=== PATIENT | male | born 1970 | race Caucasian/White ===

== ENCOUNTER 2016-10-20 21:09 | Emergency (ER) | payer OTHER ==
[~2016-10-20 21:09] MED LIST: ASPI81TA82 PO; BENEPOW5 PO; BUSP5 PO; GLUCOMETER XX; GLUCOMTESTSTRIPS XX; LANTUS2P SC; NOVOLOGP2 SQ; TRAZ50TA4 PO; VENL-39 PO; Z.0.LANCETS XX
[2016-10-20 21:13] VITALS: BP 182/114; PULSE 140; RESP 18; TEMP 98; O2SAT 95
--- NOTE | 2016-10-20 21:49 | PD ---
Physical Exam Time Seen by Provider: 21:46 Narrative 46 y/o male here for evaluation of "nervous breakdown." He is very agitated with any questioning in triage. He does not want to elaborate on his symptoms. Vital signs reviewed. Seen at triage desk. Awaiting bed placement. Data Data Last Documented VS Vital Signs Date Time Temp Pulse Resp B/P Pulse Ox O2 Delivery O2 Flow Rate FiO2 10/20/16 21:13 98.0 140 18 182/114 95 Room Air [facility] Medical Record Reviewed: Yes Supervised Visit with SANYA: Janes Carnes Oct 20, 2016 21:49
[2016-10-20] MEDS ORDERED: LANTUS2P SQ (23:56)
[2016-10-20] MEDS ORDERED: NOVOLOGP2 SQ (23:56)
[2016-10-20] MEDS ORDERED: ASPI81CH CHEW (23:56)
[2016-10-20] MEDS ORDERED: VENL75CA44 PO (23:56)
[2016-10-21 00:21] LABS: AUTOMATED NEUTROPHIL # 6.9 TH/MM3 (1.8-7.7); BASOPHIL # 0.1 TH/MM3 (0-0.2); BASOPHIL % 0.6 % (0.0-2.0); EOSINOPHIL # 0.1 TH/MM3 (0-0.4); EOSINOPHIL % 0.5 % (0.0-4.0); HEMATOCRIT 46.9 % (39.0-51.0); HEMO FLAGS DIFF FINAL; LYMPH % 38.2 % (9.0-44.0); MEAN CELL VOLUME 83.4 FL (80.0-100.0); MEAN CORPUSCULAR HEMOGLOBIN 29.1 PG (27.0-34.0); MEAN CORPUSCULAR HGB CONC 34.9 % (32.0-36.0); MONO % 8.2 % (0.0-8.0); NEUT % 52.5 % (16.0-70.0); PLATELET COUNT 329 TH/MM3 (150-450); RED BLOOD COUNT 5.63 MIL/MM3 (4.50-5.90); RED CELL DISTRIBUTION WIDTH 12.8 % (11.6-17.2); WHITE BLOOD COUNT 13.1 TH/MM3 (4.0-11.0)
[2016-10-21 00:35] LABS: AMPHETAMINE, URINE NEG (NEG); BARBITURATES, URINE NEG (NEG); COCAINE, URINE NEG (NEG)
[2016-10-21 00:43] LABS: ALT (GPT) 37 U/L (12-78)
[2016-10-21 00:45] LABS: ALKALINE PHOSPHATASE 113 U/L (45-117); TOTAL BILIRUBIN ADULT 0.5 MG/DL (0.2-1.0)
[2016-10-21 00:54] LABS: ANION GAP 12 MEQ/L (5-15); AST (GOT) 33 U/L (15-37); BICARBONATE 22.4 MEQ/L (21.0-32.0); BLOOD UREA NITROGEN 22 MG/DL (7-18); CHLORIDE 99 MEQ/L (98-107); GLOMERULAR FILTRATION RATE 72 ML/MIN (>89); SODIUM (NA) 133 MEQ/L (136-145)
--- NOTE | 2016-10-21 00:54 | PD ---
HPI Chief Complaint: Psychiatric Symptoms Time Seen by Provider: 23:53 Travel History International Travel<30 days: No Contact w/Intl Traveler<30days: No Traveled to known affect area: No History of Present Illness HPI 46-year-old male with history of PTSD, here voluntarily for psychiatric evaluation. The patient reports having many issues with his current and is afraid that he may have a nervous breakdown. He tells me that he has not been on his venlafaxine lately. He denies suicidal or homicidal ideation. He denies alcohol or any toxic ingestions. He is unwilling to provide too much detail about his situation, stating he would rather speak to a psychiatrist about it. PFSH Past Medical History Asthma: Yes (MILD) Blood Disorders: No Anxiety: Yes Depression: Yes Heart Rhythm Problems: No Cancer: No High Cholesterol: Yes Chemotherapy: No Chest Pain: Yes Congestive Heart Failure: No COPD: Yes Diabetes: Yes (INSULIN DEP) Patient Takes Glucophage: No Endocrine: Yes Gastrointestinal Disorders: Yes (gi bleeding 1994 all started) Genitourinary: Yes (IBS REFLUX) Immune Disorder: No Musculoskeletal: No Neurologic: Yes Psychiatric: Yes (PTSD) Reproductive: No Respiratory: Yes (should be wearing cpap but does not ) Immunizations Current: Yes Radiation Therapy: No Sleep Apnea: Yes (OCCASIONAL) Thyroid Disease: No Tetanus Vaccination: < 5 Years Influenza Vaccination: No Past Surgical History Tonsillectomy: Yes Other Surgery: Yes (R shoulder, TONSILLECTOMY) Social History Alcohol Use: No Tobacco Use: No Substance Use: No Allergies-Medications (Allergen,Severity, Reaction): Coded Allergies: No Known Allergies (Unverified , 10/20/16) Reported Meds & Prescriptions Reported Meds & Active Scripts Active Reported Venlafaxine ER 24 HR (Venlafaxine HCl) 75 Mg Cap 75 Mg PO DAILY Lantus Inj (Insulin Glargine) 100 Unit/Ml Inj 20 Unit SQ HS Novolog Inj (Insulin Aspart) 1,000 Unit/10 Ml Vial 7 Units SQ TID Aspirin 81 Mg Chew 81 Mg CHEW DAILY Review of Systems Except as stated in HPI: all other systems reviewed are Neg Physical Exam Narrative GENERAL: Well-developed, well-nourished, comfortable, no apparent distress. SKIN: Focused skin assessment warm/dry. HEAD: Atraumatic. Normocephalic. EYES: Pupils equal and round. No scleral icterus. No injection or drainage. ENT: No nasal bleeding or discharge. Mucous membranes pink and moist. NECK: Trachea midline. No JVD. No nuchal rigidity. CARDIOVASCULAR: Regular rate and rhythm. No murmur appreciated. RESPIRATORY: No accessory muscle use. Clear to auscultation. Breath sounds equal bilaterally. GASTROINTESTINAL: Abdomen soft, non-tender, nondistended. MUSCULOSKELETAL: No obvious deformities. No clubbing. No cyanosis. No edema. NEUROLOGICAL: Awake and alert. No obvious cranial nerve deficits. Motor grossly within normal limits. Normal speech. PSYCHIATRIC: Appropriate mood and affect; insight and judgment normal. Data Data Last Documented VS Vital Signs Date Time Temp Pulse Resp B/P Pulse Ox O2 Delivery O2 Flow Rate FiO2 10/21/16 01:01 138 18 147/87 97 Room Air 10/20/16 21:13 98.0 Orders Electrocardiogram (10/20/16 ) Complete Blood Count With Diff (10/20/16 23:53) Comprehensive Metabolic Panel (10/20/16 23:53) Psych Screen (10/20/16 23:53) Drug Screen, Random Urine (10/20/16 23:53) Alcohol (Ethanol) (10/20/16 23:53) Salicylates (Aspirin) (10/20/16 23:53) Tylenol (Acetaminophen) (10/20/16 23:53) Sodium Chlor 0.9% 1000 Ml Inj (Ns 1000 M (10/21/16 01:00) Lorazepam Inj (Ativan Inj) (10/21/16 01:00) Thyroid Stimulating Hormone (10/21/16 01:06) Thyroxine (T4) (10/21/16 01:06) Sodium Chlor 0.9% 1000 Ml Inj (Ns 1000 M (10/21/16 01:30) Labs Laboratory Tests Test 10/21/16 10/21/16 00:00 00:05 White Blood Count 13.1 TH/MM3 Red Blood Count 5.63 MIL/MM3 Hemoglobin 16.4 GM/DL Hematocrit 46.9 % Mean Corpuscular Volume 83.4 FL Mean Corpuscular Hemoglobin 29.1 PG Mean Corpuscular Hemoglobin 34.9 % Concent Red Cell Distribution Width 12.8 % Platelet Count 329 TH/MM3 Mean Platelet Volume 8.6 FL Neutrophils (%) (Auto) 52.5 % Lymphocytes (%) (Auto) 38.2 % Monocytes (%) (Auto) 8.2 % Eosinophils (%) (Auto) 0.5 % Basophils (%) (Auto) 0.6 % Neutrophils # (Auto) 6.9 TH/MM3 Lymphocytes # (Auto) 5.0 TH/MM3 Monocytes # (Auto) 1.1 TH/MM3 Eosinophils # (Auto) 0.1 TH/MM3 Basophils # (Auto) 0.1 TH/MM3 CBC Comment DIFF FINAL Differential Comment Sodium Level 133 MEQ/L Potassium Level 4.6 MEQ/L Chloride Level 99 MEQ/L Carbon Dioxide Level 22.4 MEQ/L Anion Gap 12 MEQ/L Blood Urea Nitrogen 22 MG/DL Creatinine 1.09 MG/DL Estimat Glomerular Filtration 72 ML/MIN Rate Random Glucose 263 MG/DL Calcium Level 9.5 MG/DL Total Bilirubin 0.5 MG/DL Aspartate Amino Transf 33 U/L (AST/SGOT) Alanine Aminotransferase 37 U/L (ALT/SGPT) Alkaline Phosphatase 113 U/L Total Protein 8.1 GM/DL Albumin 4.0 GM/DL Salicylates Level LESS THAN 1.7 MG/DL Acetaminophen Level LESS THAN 2.0 MCG/ML Ethyl Alcohol Level LESS THAN 3 MG/DL Urine Opiates Screen NEG Urine Barbiturates Screen NEG Urine Amphetamines Screen NEG Urine Benzodiazepines Screen NEG Urine Cocaine Screen NEG Urine Cannabinoids Screen NEG MDM Medical Decision Making Medical Screen Exam Complete: Yes Emergency Medical Condition: Yes Differential Diagnosis Acute psychosis, agitation, PTSD, anxiety Narrative Course Vital signs show heart rate of 138, blood pressure 147/87, pulse ox 97% on room air. CBC shows WBC 13.1, hemoglobin 16.4, hematocrit 46.9, platelets 329. CMP is remarkable for random glucose 263, otherwise essentially unremarkable. Alcohol, Tylenol, and salicylate levels are negative. Urine drug screen is negative for all drugs tested. Patient denies alcohol abuse. He remains tachycardic with a heart rate of 140 after a liter of normal saline IV. He will be given another liter as well as IV Ativan. TSH and free T4 were added to labs to assess for possible hyperthyroidism. At approximately 1:00 AM at the end of my shift the patient was signed out to Dr. Falcon to follow-up with TSH and free T4 as well as repeat heart rate after the patient has received a second liter of normal saline as well as IV Ativan. Diagnosis Primary Impression: PTSD (post-traumatic stress disorder) Niko Renae MD Oct 21, 2016 00:54
[2016-10-21] MEDS ORDERED: SODIUM CHLOR 0.9% 1000 ML INJ 1,000 ML IV ONE ×2 (01:00→01:30)
[2016-10-21] MEDS ORDERED: LORazepam 2 MG/ML VIAL IV PUSH ONE (01:00)
[2016-10-21 01:01] VITALS: BP 147/87; PULSE 138; RESP 18; O2SAT 97
[2016-10-21 01:03] LABS: ACETAMINOPHEN LESS THAN 2.0 MCG/ML (10.0-30.0); POTASSIUM 4.6 MEQ/L (3.5-5.1)
[2016-10-21 01:31] VITALS: PULSE 124
[2016-10-21 01:51] LABS: THYROXINE (T4) 10.4 MCG/DL (4.5-12.1)
[2016-10-21 02:23] VITALS: PULSE 107
[2016-10-21 03:19] VITALS: BP 145/78; PULSE 127; PULSE 135; RESP 18; O2SAT 98
[2016-10-21 03:35] VITALS: BP 143/76; PULSE 122; RESP 19; O2SAT 98
--- NOTE | 2016-10-21 04:15 | PD ---
Data Data Last Documented VS Vital Signs Date Time Temp Pulse Resp B/P Pulse Ox O2 Delivery O2 Flow Rate FiO2 10/21/16 03:35 122 19 143/76 98 Room Air 10/20/16 21:13 98.0 Orders Electrocardiogram (10/20/16 ) Complete Blood Count With Diff (10/20/16 23:53) Comprehensive Metabolic Panel (10/20/16 23:53) Psych Screen (10/20/16 23:53) Drug Screen, Random Urine (10/20/16 23:53) Alcohol (Ethanol) (10/20/16 23:53) Salicylates (Aspirin) (10/20/16 23:53) Tylenol (Acetaminophen) (10/20/16 23:53) Sodium Chlor 0.9% 1000 Ml Inj (Ns 1000 M (10/21/16 01:00) Lorazepam Inj (Ativan Inj) (10/21/16 01:00) Thyroid Stimulating Hormone (10/21/16 01:06) Thyroxine (T4) (10/21/16 01:06) Sodium Chlor 0.9% 1000 Ml Inj (Ns 1000 M (10/21/16 01:30) Labs Laboratory Tests Test 10/21/16 10/21/16 00:00 00:05 White Blood Count 13.1 TH/MM3 Red Blood Count 5.63 MIL/MM3 Hemoglobin 16.4 GM/DL Hematocrit 46.9 % Mean Corpuscular Volume 83.4 FL Mean Corpuscular Hemoglobin 29.1 PG Mean Corpuscular Hemoglobin 34.9 % Concent Red Cell Distribution Width 12.8 % Platelet Count 329 TH/MM3 Mean Platelet Volume 8.6 FL Neutrophils (%) (Auto) 52.5 % Lymphocytes (%) (Auto) 38.2 % Monocytes (%) (Auto) 8.2 % Eosinophils (%) (Auto) 0.5 % Basophils (%) (Auto) 0.6 % Neutrophils # (Auto) 6.9 TH/MM3 Lymphocytes # (Auto) 5.0 TH/MM3 Monocytes # (Auto) 1.1 TH/MM3 Eosinophils # (Auto) 0.1 TH/MM3 Basophils # (Auto) 0.1 TH/MM3 CBC Comment DIFF FINAL Differential Comment Sodium Level 133 MEQ/L Potassium Level 4.6 MEQ/L Chloride Level 99 MEQ/L Carbon Dioxide Level 22.4 MEQ/L Anion Gap 12 MEQ/L Blood Urea Nitrogen 22 MG/DL Creatinine 1.09 MG/DL Estimat Glomerular Filtration 72 ML/MIN Rate Random Glucose 263 MG/DL Calcium Level 9.5 MG/DL Total Bilirubin 0.5 MG/DL Aspartate Amino Transf 33 U/L (AST/SGOT) Alanine Aminotransferase 37 U/L (ALT/SGPT) Alkaline Phosphatase 113 U/L Total Protein 8.1 GM/DL Albumin 4.0 GM/DL Thyroxine (T4) 10.4 MCG/DL Thyroid Stimulating Hormone 2.590 uIU/ML 3rd Gen Salicylates Level LESS THAN 1.7 MG/DL Acetaminophen Level LESS THAN 2.0 MCG/ML Ethyl Alcohol Level LESS THAN 3 MG/DL Urine Opiates Screen NEG Urine Barbiturates Screen NEG Urine Amphetamines Screen NEG Urine Benzodiazepines Screen NEG Urine Cocaine Screen NEG Urine Cannabinoids Screen NEG MDM Medical Record Reviewed: Yes Supervised Visit with SANYA: No Narrative Course CBC & BMP Diagram 10/21/16 00:00 LFTs normal TSH 2.590 T4 10.4 UTOX quijano-negative EtOH < 3 Salicylates < 1.7 APAP < 2.0 EKG reveals sinus tachycardia with normal axis intervals Review of the patient's vital signs reveal a trending towards tachycardia dating about 13 months back. In fact there is no normal heart rate on record. The patient states he typically has a elevated heart rate of about 100-110. At the time of my evaluation he had no chest pain or shortness of breath. That was at about 4:05 AM. His heart rate varied between about 105 and 130. Since the patient is without medical complaint and has a record of tachycardia he is considered medically clear for psychiatric evaluation. The patient has agreed to follow up with [facility] labile pulse. Patient requests a psychiatrist to speak with him about his current situation. He prefers not to expound upon it with the undersigned. Diagnosis Primary Impression: PTSD (post-traumatic stress disorder) Juwan Falcon MD Oct 21, 2016 04:15
[2016-10-21 05:30] VITALS: BP 166/89
--- NOTE | 2016-10-23 18:14 | EKG ---
Date Performed: 10/20/2016 Time Performed: 21:56:15 PTAGE: 46 years EKG: SINUS TACHYCARDIA, POSSIBLE ATRIAL FLUTTER NONSPECIFIC T-WAVE ABNORMALITY ABNORMAL RHYTHM E CG NO PREVIOUS TRACING DOCTOR: Nathaniel Zuniga Interpretating Date/Time 10/23/2016 18:11:31
== END 2016-10-21 05:32 | disposition home or self-care (01) ==
LOC: NEPD 21:09 → NEPE 10-21 05:32
DX: F43.10 Post-traumatic stress disorder, unspecified (principal); R00.0 Tachycardia, unspecified; E11.9 Type 2 diabetes mellitus without complications; E78.00 Pure hypercholesterolemia, unspecified; G47.30 Sleep apnea, unspecified; Z79.4 Long term (current) use of insulin; Z79.899 Other long term (current) drug therapy; Z87.09 Personal history of other diseases of the respiratory system; Z86.59 Personal history of other mental and behavioral disorders; Z87.19 Personal history of other diseases of the digestive system; Z86.69 Personal history of other diseases of the nervous system and sense organs
CPT/HCPCS: 80053; 80307; 84436; 84443; 85025; 93005; 96361; 96374; 99283; J2060; J7030